=== PATIENT | male | born 1985 | race Caucasian/White ===

== ENCOUNTER 2021-07-06 14:50 | Emergency (ER) | payer BC, SELFPAY ==
[2021-07-06 15:11] VITALS: BP 128/84; PULSE 84; RESP 18; TEMP 36.6; O2SAT 98
--- NOTE | 2021-07-06 16:19 | ED.URI ---
HPI - URI/Sore Throat General Chief Complaint: Upper Respiratory Infection Stated Complaint: Body Aches,Cough Time Seen by Provider: 07/06/21 16:00 Source: patient, RN notes reviewed and old records reviewed Mode of arrival: ambulatory Limitations: no limitations History of Present Illness HPI Narrative: 36-year-old male who presents to [facility] with complaints of feeling feverish with body aches and cough since yesterday. Patient states he has been Covid vaccinated and also flu vaccinated along with whole family but daughter tested positive for influenza B yesterday. Patient states that he has had COVID and COVID vaccinations and flu with his kids also checked for Covid yesterday and were negative. Patient states some sore throat and nasal drainage, denies any shortness of breath. MD elicited complaint: fever, cough and other (Body aches) Related Data Allergies Allergy/AdvReac Type Severity Reaction Status Date / Time lactose Allergy Severe Gastrointestinal Verified 07/06/21 15:11 Upset Review of Systems Review of Systems: CONSTITUTIONAL: Reports that he has felt feverish, chills, or sweats. EYES: Denies visual changes, redness, or discharge. ENT: Positive for rhinorrhea, congestion, sore throat, no otalgia. CARDIOVASCULAR: Denies chest pain, palpitations, or edema. RESPIRATORY: Positive for cough denies dyspnea. GASTROINTESTINAL: Denies abdominal pain, nausea, vomiting, or diarrhea. GENITOURINARY: Denies dysuria or hematuria. SKIN: Denies rash or itching. MUSCULOSKELETAL: Denies back pain, joint pain, positive body aches NEUROLOGIC: Denies headache, numbness, or weakness. PSYCHIATRIC: Denies anxiety or depression. All systems reviewed & are unremarkable except as noted in HPI and below PMFSH Past Medical History Medical History GERD (gastroesophageal reflux disease) History of sinus problem Surgical History Surgical History No history of previous surgery Family History Family History Grandparent Carcinoma of colon, Onset Age: 70 Family history of lung cancer, Onset Age: 70 Social History Social History (Updated 07/09/21 @ 10:09 by Marlin Sy NP) Smoking status: Former smoker Smoking end date: 07/19/10 Alcohol intake: current Alcohol use details: social Substance use: never Living arrangements: with family Gender identity (if verbalized by the patient): Male Comments At time of signature, agree with nursing past medical, surgical, social and family history. There is no relevant family history pertinent to the presenting complaint Exam Narrative: GENERAL: Well-appearing, well-nourished, and in no acute distress. HEAD: Normocephalic, atraumatic. EYES: PERRLA and EOMI. ENT: Nares patent with some clear rhinorrhea no epistaxis. Mucous membranes moist.TM's normal with good light reflex, throat some redness with no lesions or exudates, no tonsil enlargement some post nasal drainage present. NECK: Supple.no lymphadenopathy CHEST: Clear to auscultation. No respiratory distress.cough dry with no dyspnea SAO2 98% on room air. HEART: Regular rate and rhythm. No murmur heard. Normal peripheral pulses. ABDOMEN: Soft, nontender, nondistended, normal active bowel sounds. EXTREMITIES: Normal range of motion. No edema. SKIN: Warm, dry, no rash. NEURO: No focal deficits. Alert and oriented x3. Course Vital Signs Vital signs: Vital Signs Temperature 36.6 C 07/06/21 15:11 Pulse Rate 84 07/06/21 15:11 Respiratory Rate 18 07/06/21 15:11 Blood Pressure 128/84 07/06/21 15:11 Pulse Oximetry 98 07/06/21 15:11 Temperature 36.6 C 07/06/21 15:11 Pulse Rate 84 07/06/21 15:11 Respiratory Rate 18 07/06/21 15:11 Blood Pressure 128/84 07/06/21 15:11 Pulse Oximetry 98 07/06/21 15:11 MDM - URI/Sore
== END 2021-07-06 16:42 | disposition home or self-care (01) ==
PROVIDERS: Emergency Provider Registered Nurse
DX: B34.9 Viral infection, unspecified (principal); Z87.891 Personal history of nicotine dependence; K21.9 Gastro-esophageal reflux disease without esophagitis
CPT/HCPCS: 87081; 87804; 87880; 99213; G0463

== ENCOUNTER 2022-09-25 01:10 | Day surgery (SDC) | payer BC, SELFPAY ==
[2022-09-16 12:57] VITALS: BMI 29.8
[2022-09-25 08:12] VITALS: BP 138/90; PULSE 95; RESP 16; TEMP 36.3; O2SAT 99
[2022-09-25] MEDS: LACTATED RINGERS 1,000 ML 150 ML IV CONT (08:19)
--- NOTE | 2022-09-25 08:49 | P.HP_ITS ---
History of Present Illness History of Present Illness Consent: Risks, benefits, and alternatives have been discussed and questions answered. Patient agrees to proceed with procedure. Chief complaint: diarrhea Narrative: Steven Billy is a 37 year old male Presents for colonoscopy. Patient has chronic intermittent diarrhea. He denies any bleeding or weight loss. Family history is significant for grandparent on both mother and father side of had colon cancer. Patient desires neoplasia screening. Review of Systems Review of Systems: review of systems noncontributory. [facility] Past Medical History Medical History GERD (gastroesophageal reflux disease) History of sinus problem Surgical History Surgical History No history of previous surgery Family History Family History Grandparent Carcinoma of colon, Onset Age: 70 Family history of lung cancer, Onset Age: 70 Social History Social History (Updated 07/09/21 @ 10:09 by Marlin Sy NP) Smoking status: Former smoker Tobacco type: cigarettes Smoking end date: 07/19/10 Alcohol intake: current Drinks per week: 1 Alcohol use details: social Substance use: never Substance use type: does not use Living arrangements: with family Gender identity (if verbalized by the patient): Male Spiritual care concerns: No Meds Home Medications and Allergies Home Medications Medication Instructions Recorded Confirmed Type No Home Medications 09/25/22 09/25/22 History Allergies Allergy/AdvReac Type Severity Reaction Status Date / Time lactose AdvReac Severe Gastrointestinal Verified 09/25/22 08:11 Upset Vital Signs Vital Signs - 24 hr 09/25/22 08:12 Temperature 97.4 F L Pulse Rate 95 Respiratory Rate 16 Blood Pressure 138/90 Pulse Oximetry 99 Oxygen Delivery Room Air Exam Narrative: Physical exam reveals patient to be alert. Vital signs stable. HEENT exam is unremarkable. Patient is anicteric. Lungs are clear to auscultation and percussion. Heart is without murmur or extra sounds. Abdomen bowel sounds present soft nontender with no hepatosplenomegaly. Digital external rectal exam is normal. Assessment and Plan Assessment and plan (1) Chronic diarrhea: Code(s): K52.9 - Noninfective gastroenteritis and colitis, unspecified Status: Acute Assessment and Plan: Chronic diarrhea occurs intermittently. Suspicious for irritable bowel syndrome. Fiber supplementation such as FiberCon 2 tabs p.o. b.i.d. is advised. Patient reports both Paternal and maternal grandparents have had colon cancer. For this reason colonoscopy will be performed.
--- NOTE | 2022-09-25 08:55 | WPDANESEPPF ---
Anes - Initial Pre Proc Eval Procedure: Operation Date: 09/25/22 09:00 Proposed Procedures p Colonoscopy - Catrachito Pereyra MD Date/Time: 09/25/22 08:55 Surgeon: Catrachito Pereyra MD Pre Op Diagnosis: diarrhea Patient Data Age: 37 Gender: M Height: 1.7 m Weight: 86.9 kg Last Vital Signs Temp 36.3 C L 09/25/22 08:12 Pulse 95 09/25/22 08:12 Resp 16 09/25/22 08:12 BP 138/90 09/25/22 08:12 Pulse Ox 99 09/25/22 08:12 O2 Del Method Room Air 09/25/22 08:12 Allergies Allergy/AdvReac Type Severity Reaction Status Date / Time lactose AdvReac Severe Gastrointestinal Verified 09/25/22 08:11 Upset Home Medications Medication Instructions Recorded Confirmed Type No Home Medications 09/25/22 09/25/22 History Patient hx anesthesia problems: none Family hx anesthesia problems: none Results Review: All pre-operative results and documents have been reviewed as part of the pre-operative evaluation. [facility] Past Medical History Medical History GERD (gastroesophageal reflux disease) History of sinus problem Surgical History Surgical History No history of previous surgery Family History Family History Grandparent Carcinoma of colon, Onset Age: 70 Family history of lung cancer, Onset Age: 70 Social History Social History Smoking status: Former smoker Tobacco type: cigarettes Smoking end date: 07/19/10 Alcohol intake: current Drinks per week: 1 Alcohol use details: social Substance use: never Substance use type: does not use Living arrangements: with family Gender identity (if verbalized by the patient): Male Spiritual care concerns: No Anes - Eval Final PreProcedure Day of Procedure 09/25/22 08:55 Patient weight: overweight Heart: regular rate and rhythm Lungs: clear to auscultation Airway: Mallampati scale class II Neurological: alert and oriented Last oral intake: >/= 8 hours ASA classification: II Emergent: no Anesthetic plan: proceed Anesthesia type and monitoring: general GIVS and standard monitoring Results Review: All pre-operative results and documents have been reviewed as part of the pre-operative evaluation. Informed Consent: The patient's anesthetic plan and its attendant risks and benefits were discussed with the patient/family/POA. Questions were solicited and answers provided to the satisfaction of the patient/family/POA.
[2022-09-25 09:21] VITALS: BP 96/60; PULSE 88; RESP 17; O2SAT 93
[2022-09-25 09:31] VITALS: BP 99/61; PULSE 83; RESP 21; O2SAT 94
[2022-09-25 09:41] VITALS: BP 110/75; PULSE 81; RESP 25; O2SAT 95
== END 2022-09-25 09:57 | disposition home or self-care (01) ==
PROVIDERS: PCP Family Medicine; Visit Provider Internal Medicine Gastroenterology
PROC: 0DJD8ZZ Inspection of Lower Intestinal Tract, Via Natural or Artificial Opening Endoscopic (ICD-10-PCS; CPT 45378; principal; 2022-09-25 09:00)
DX: K52.9 Noninfective gastroenteritis and colitis, unspecified (principal); D12.2 Benign neoplasm of ascending colon; K21.9 Gastro-esophageal reflux disease without esophagitis; K64.8 Other hemorrhoids; Z87.891 Personal history of nicotine dependence; Z80.0 Family history of malignant neoplasm of digestive organs
CPT/HCPCS: 45385; 45380; 88305; J2704; J7120